=== PATIENT | male | born 1955 | race Caucasian/White ===

== ENCOUNTER → 2017-01-04 09:49 | Outpatient (CLI) | payer BC | END | disposition home or self-care (01) | LOC: D.US 09:49 | DX: R10.9 Unspecified abdominal pain (principal) ==

== ENCOUNTER 2017-01-31 05:13 | Day surgery (SDC) | payer BC ==
[2017-01-30 12:25] LABS: BASOPHILS 0.3 % (0-2); EOSINOPHILS 3.1 % (0-7); HEMATOCRIT 35.3 % (42.0-54.0); HEMOGLOBIN 12.6 g/dL (13.5-17.5); IMMATURE GRANULOCYTES 0.2 % (0-5); LYMPHOCYTES 16.1 % (15-50); MCH 34.2 pg (26.0-34.0); MCHC 35.7 g/dL (31.0-37.0); MCV 95.9 fL (80.0-100.0); MEAN PLATELET VOLUME 9.6 fL (7.4-10.4); MONOCYTES 6.4 % (2-11); NEUTROPHILS 73.9 % (40-80); PLATELET COUNT 211 10x3/uL (130-400); RBC 3.68 10x6/uL (4.20-6.10); RDW 12.8 % (11.5-14.5); WBC 8.7 10x3/uL (4.8-10.8)
[2017-01-30 12:49] LABS: ANION GAP 10.6 mmol/L (8-16); CALCIUM 9.6 mg/dL (8.5-10.1); CREATININE - SERUM 2.2 mg/dL (0.6-1.3); POTASSIUM - SERUM 3.6 mmol/L (3.5-5.1)
[~2017-01-31] VITALS: Ht 182.9 cm; Wt 104.8 kg
[~2017-01-31 05:13] MED LIST: BENADRYL25 MG PO; GLUCOPHAGE500 MG PO; LISINOPRIL-HCTZ; LISINOPRIL-HCTZ 20-1; LIVALO1 MG PO; NAPROSYN500 MG PO; NORVASC10 MG PO; PRINIVIL20 MG PO
[2017-01-31 08:26] VITALS: BP 140/82; Ht 182.9 cm; Wt 104.8 kg
[2017-01-31] MEDS ORDERED: HYDROCODON-ACE1 EAC7 PO (10:58)
--- NOTE | 2017-01-31 12:18 | OP ---
PATIENT NAME: ANTONIO BARREAR MEDICAL RECORD: [id number] :53 LOCATION:.[facility] ADMISSION DATE: SURGEON: LEONA GALLARDO MD DATE OF OPERATION: 01/31/2017 SURGEON: Leona Gallardo MD. PREOPERATIVE DIAGNOSES: 1. Cholelithiasis obstruction. 2. Epidermoid cyst of the right forehead. POSTOPERATIVE DIAGNOSES: 1. Cholelithiasis obstruction. 2. Epidermoid cyst of the right forehead. PROCEDURES PERFORMED: 1. Laparoscopic cholecystectomy. 2. Excisional biopsy of cyst of right forehead, 4 x 4 x 3 cm. ANESTHESIA: General. COMPLICATIONS: None. SPECIMENS: 1. Gallbladder. 2. Sebaceous cyst, 4 x 4 x 3 cm. ESTIMATED BLOOD LOSS: 40 cc. Case was clean contaminated. OPERATIVE COURSE: After consent was obtained, the patient was taken to the operating room and placed in the supine position on the operating table. Next, general anesthesia was given via endotracheal intubation after a timeout was taken to confirm the correct patient and procedure. Next, the abdomen was prepped and draped in typical sterile fashion. Local anesthetic was injected just above the umbilicus. A stab incision was made with an 11-blade scalpel. Using a 5-mm bladeless optical trocar, the abdomen was entered under direct laparoscopic vision. Adequate pneumoperitoneum was achieved. The abdominal cavity was inspected. No evidence of bowel injury. No evidence of bleeding. At this time, the patient was placed in the steep reverse Trendelenburg position. All remaining trocars were placed after the administration of local anesthetic. Under direct laparoscopic vision, two 5-mm trocars in the right upper quadrant and 11-mm trocar in the subxiphoid position. The fundus of the gallbladder was then grasped and retracted cephalad. The infundibulum was grasped and retracted laterally. The peritoneum was incised using electrocautery. Blunt dissection was performed with a [place] dissector until the critical view was obtained, cystic duct lateral, cystic artery medial and liver in the posterior window. Three clips were placed in the proximal cystic duct, 1 clip distal and 2 clips were placed in the proximal cystic artery, 1 clip distal. The duct and artery were then transected with laparoscopic Metzenbaum scissors. The remaining portion of the gallbladder was then dissected off the liver bed using electrocautery. It was grasped with the tenaculum and removed through the 11-mm trocar and sent for permanent pathology. Next, the operative field was copiously irrigated and suctioned. Careful OPERATIVE REPORT [id number] ANTONIO BARRERA attention was paid to hemostasis, which was obtained in the liver bed using electrocautery. Once adequate hemostasis was obtained, the abdomen was copiously irrigated and suctioned. The operative site was reinspected, there are [address] in the cystic duct, [address] in the cystic artery. There was no evidence of bowel injury. No evidence of bleeding. No evidence of bile leak. At this time, all remaining instruments were removed. The abdomen was desufflated. Trocars were removed. The fascia was closed with an 0 Vicryl suture. Skin was closed with 4-0 Monocryl, Mastisol and Steri-Strips. At this time, all drapes were removed. The right jewish was reprepped and draped in typical sterile fashion. A 20 cc of the local anesthetic were injected. A skin incision was made with a 15-blade scalpel. Dissection continued to the subcutaneous fascia using electrocautery and Metzenbaum scissors. The cyst was circumferentially dissected in its entirety and sent for permanent pathology. It measured 4 cm in length, 4 cm in width and 3 cm in depth. The wound bed was copiously irrigated and suctioned. Hemostasis was obtained with electrocautery. The wound was closed in multiple layers. The deep subcutaneous layer was closed with 3-0 Vicryl suture and the skin was closed with a 4-0 Monocryl and then covered with Mastisol and Steri-Strips. At the end of procedure, all needle and instrument counts were correct. No complications occurred. The patient was extubated and transferred to the PACU in stable condition. TRANSINT:[id number] Voice Confirmation ID: [id number] DOCUMENT ID: [id number] LEONA GALLARDO MD at 1218 CC: [id number] DICTATION DATE: 01/31/17 1057 [employer] C[employer]TER: 01/31/17 1113 [facility] [address] [place] [address]
== END 2017-01-31 12:48 | disposition home or self-care (01) ==
LOC: D.OPS 05:13 → D.PAN 09:45 → D.OPS 09:55 → D.PAN 10:45 → D.OPS 10:45
PROVIDERS: Anesthesiology
DX: K80.20 Calculus of gallbladder without cholecystitis without obstruction (principal); L72.0 Epidermal cyst; I10 Essential (primary) hypertension; F17.200 Nicotine dependence, unspecified, uncomplicated; E11.9 Type 2 diabetes mellitus without complications; G47.30 Sleep apnea, unspecified; K21.9 Gastro-esophageal reflux disease without esophagitis; M19.90 Unspecified osteoarthritis, unspecified site; Z01.812 Encounter for preprocedural laboratory examination

== ENCOUNTER → 2018-03-08 13:12 | Outpatient (CLI) | payer BC ==
[2017-01-31 08:26] VITALS: BMI 31.4
[~2018-03-08 13:12] MED LIST changes: +HYDROCODON-ACE1 EAC7 PO
== END | disposition home or self-care (01) ==
LOC: D.US 13:12
DX: I12.9 Hypertensive chronic kidney disease with stage 1 through stage 4 chronic kidney disease, or unspecified chronic kidney disease (principal); N18.3 Chronic kidney disease, stage 3 (moderate)

== ENCOUNTER → 2018-07-18 12:01 | Outpatient (CLI) | payer BC ==
[2017-01-31 08:26] VITALS: BMI 31.4
== END | disposition home or self-care (01) ==
LOC: D.MRI 12:01
DX: M54.16 Radiculopathy, lumbar region (principal)